=== PATIENT | female | born 1980 | race Caucasian/White ===

== ENCOUNTER 2019-09-10 15:46 | Emergency (ER) | payer MEDICAID, OTHER ==
[~2019-09-10] VITALS: Ht 180.3 cm; Wt 62.0 kg
[~2019-09-10 15:46] MED LIST: CYCL5TAB PO; DICL25TA PO; HYDR1TAB13 PO
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
[2019-09-10] MEDS ORDERED: PRAZ1CAP2 PO (17:16)
[2019-09-10] MEDS ORDERED: BREX2TAB PO (17:16)
[2019-09-10] MEDS ORDERED: GABA-827 PO (17:16)
[2019-09-10 17:19] LABS: BASOPHILS # (AUTO) 0.05 x10^3/uL (0-0.1); BASOPHILS % (AUTO) 1 % (0-1); EOSINOPHILS # (AUTO) 0.08 x10^3/uL (0-0.4); EOSINOPHILS % (AUTO) 2 % (1-7); LYMPHOCYTES # (AUTO) 1.82 x10^3/uL (1-3.4); LYMPHOCYTES % (AUTO) 34 % (22-44); MD NO; MEAN CORPUSCULAR HEMOGLOBIN 31.1 pg (27.0-34.8); MEAN CORPUSCULAR HGB CONC 32.7 g/dL (32.4-35.8); MEAN CORPUSCULAR VOLUME 95.1 fL (80-100); MEAN PLATELET VOLUME 8.4 fL (7.4-10.4); MONOCYTES # (AUTO) 0.44 x10^3/uL (0.2-0.8); MONOCYTES % (AUTO) 8 % (2-9); NEUTROPHILS # (AUTO) 2.89 x10^3/uL (1.8-6.8); NEUTROPHILS % (AUTO) 55 % (42-75); PLATELET COUNT 216 x10^3/uL (130-400); RED BLOOD COUNT 4.56 x10^6/uL (3.82-5.3); RED CELL DISTRIBUTION WIDTH 14.4 % (9.6-15.2)
[2019-09-10] MEDS ORDERED: FLUV100T2 PO (17:19)
[2019-09-10] MEDS ORDERED: CLON1TAB11 PO (17:19)
[2019-09-10] MEDS ORDERED: MEDR150V3 IM (17:19)
[2019-09-10 17:33] LABS: ALBUMIN 4.1 g/dL (3.4-5.0); ANION GAP 6 mmol/L (5-15); CALCIUM 8.9 mg/dL (8.5-10.1); CHLORIDE 110 mmol/L (98-107); CREATININE 0.93 mg/dL (0.55-1.02); SALICYLATE LEVEL 2.1 mg/dL (2.8-20.0)
[2019-09-10 17:35] LABS: MICROSCOPIC NOT IND
[2019-09-10 17:36] LABS: CULTURE INDICATED? NO
[2019-09-10 17:38] LABS: ALKALINE PHOSPHATASE 49 U/L (45-117); BILIRUBIN,TOTAL 0.5 mg/dL (0.2-1.0); TOTAL PROTEIN 7.4 g/dL (6.4-8.2)
[2019-09-10 17:41] LABS: ALANINE AMINOTRANSFERASE 15 U/L (12-78)
[2019-09-10 17:47] LABS: AMPHETAMINE SCREEN, URINE Negative (Negative); BARBITURATE SCREEN, URINE Negative (Negative); BENZODIAZEPINE SCREEN, URINE Negative (Negative); CANNABINOID SCREEN, URINE Negative (Negative); COCAINE SCREEN, URINE Negative (Negative); METHADONE SCREEN, URINE Negative (Negative); OPIATE SCREEN, URINE Negative (Negative)
--- NOTE | 2019-09-10 18:53 | NUR ---
LYING QUIETLY ON BED; BLANKET COVERING HEAD. SITTER AT DOORWAY.
--- NOTE | 2019-09-10 18:58 | NUR ---
PT REPORT TO TANMAY BARAJAS RN. PT CARE TRANSFERRED.
--- NOTE | 2019-09-10 19:39 | NUR ---
PT REPORT FROM JEFFRY DONATO. PT CARE TO BE ASSUMED.
--- NOTE | 2019-09-10 20:05 | NUR ---
JEFFRY DENSON FROM [facility] AT .
--- NOTE | 2019-09-10 20:09 | NUR ---
ALEXANDER RN: PT CHART AND PSYCH FORMS FAXED TO [facility], [facility], [place], AND DAT
--- NOTE | 2019-09-10 20:16 | NUR ---
JEAN DENSON, RN, PT WILL BE ADMITTED TO [facility].
--- NOTE | 2019-09-10 20:22 | NUR ---
LATE ENTRY. INFORMATION FROM [employer]. PT'S FRIEND: MARILUZ WHITE TEL: [phone]
[2019-09-10 20:46] VITALS: BP 92/54
--- NOTE | 2019-09-10 20:47 | NUR ---
CALLED FLOOR; RECEIVING RN NOT CURRENTLY AVAILABLE - SHE'LL CALL BACK.
--- NOTE | 2019-09-10 21:12 | NUR ---
INFORMED PT OF TYLENOL ORDER FOR HER LOYA. PT REFUSING TYLENOL. DEMANDING MAXALT "AND I WANT IT NOW!" PT AWARE OF PENDING ADMISSION TO [facility]. STATES SHE WANTS TO GO TO [facility]. INFORMED PT THAT THIS RN WAS TOLD [facility] DOESN'T ACCEPT HER INSURANCE. DEMANDING TO TALK TO NURSING ASSOCIATE PROGRAMMER ANALYST AND MD. PT SPEAKING IN ANGRY TONE. Addendum: 09/10/19 at 2114 by MIRIAM WILL NOTIFY ASSOCIATE PROGRAMMER ANALYST AND ERP.
[2019-09-10] MEDS ORDERED: RIZATRIPTAN 10MG TABLET PO PRN (21:30)
[2019-09-10] MEDS ORDERED: ACETAMINOPHEN 325 MG TABLET PO ONE (21:30)
--- NOTE | 2019-09-10 21:31 | NUR ---
NOTIFIED PT OF CHANGE IN MEDICATION AND THAT MAXALT NEEDS TO BE ORDERED FROM PHARMACY. PT ASKED ABOUT ADMISSION TO [facility]. INFORMED HER REGISTRATION IS REVERIFING HER INSURANCE. PT STATES "IF I CAN'T GO THERE, I WANT TO GO TO [facility], AND IF I NEED TO GET MY PLATEMAKER INVOLVED, I WILL. 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
--- NOTE | 2019-09-10 21:34 | NUR ---
JEFFRY BROWN FROM [facility] CALLED FOR PT REPORT. UPDATED KEVIN ON PT'S DEMANDS. WILL CALL UNIT BACK WITH DETERMINATION.
--- NOTE | 2019-09-10 21:43 | NUR ---
PT NOTIFIED SHE WILL BE ADMITTED TO [facility]. PT ANGRY. PT ASKED "WHAT IF I GET ACCEPTED TO [facility]?" INFORMED PT SHE WILL NEED TO DISCUSS THAT WITH UNIT STAFF. PT DEMANDING HER CLOTHES. INFORMED HER PER PROTOCOL, SI PATIENT CLOTHES ARE REMOVED - PT WAS NOTIFIED HOURS AGO THAT PERSONAL BELONGINGS WOULD BE REMOVED FROM HER PRESENCE AND SECURELY STORED. ASSURED PT THAT HER PERSONAL BELONGINGS WOULD GO TO THE UNIT WITH HER.
--- NOTE | 2019-09-10 21:51 | NUR ---
PT REPORT TO JEFFRY BROWN. MAXALT 10MG PO RECEIVED FROM PHARMACY AND WILL BE GIVEN TO PT SHORTLY.
== END 2019-09-10 22:04 ==
LOC: ED 18:09
DX: S16.1XXA Strain of muscle, fascia and tendon at neck level, initial encounter (principal); F33.2 Major depressive disorder, recurrent severe without psychotic features; R45.851 Suicidal ideations; F50.00 Anorexia nervosa, unspecified; V49.88XA Car occupant (driver) (passenger) injured in other specified transport accidents, initial encounter; Y93.89 Activity, other specified; Y92.89 Other specified places as the place of occurrence of the external cause; Y99.8 Other external cause status
CPT/HCPCS: 36415; 72050; 80053; 80307; 81003; 84703; 85025; 99285

== ENCOUNTER 2019-09-10 20:50 | Inpatient (IN) | payer MEDICAID ==
[~2019-09-10] VITALS: Ht 180.3 cm; Wt 65.1 kg
[~2019-09-10 20:50] MED LIST changes: +BREX2TAB PO; +CLON1TAB11 PO; +FLUV100T2 PO; +GABA-827 PO; +MEDR150V3 IM; +PRAZ1CAP2 PO
[2019-09-10] MEDS ORDERED: POLYETHYLENE GLYCOL 17 GM PACKET PO PRN (21:00)
[2019-09-10] MEDS ORDERED: LORazepam 0.5MG TABLET PO PRN (21:00)
[2019-09-10] MEDS ORDERED: ACETAMINOPHEN 325 MG TABLET PO PRN (21:00)
[2019-09-10] MEDS ORDERED: BISACODYL 10 MG SUPP PR PRN (21:00)
[2019-09-10] MEDS ORDERED: DOCUSATE 100 MG CAPSULE PO PRN (21:00)
[2019-09-10] MEDS ORDERED: ONDANSETRON ODT 4 MG PO PRN (21:00)
[2019-09-10 22:00] VITALS: BP 113/75
[2019-09-11 07:12] VITALS: BP 103/68
[2019-09-11 07:28] LABS: CHOL/HDL RATIO 2.6; FREE T4 (FREE THYROXINE) 0.96 ng/dL (0.76-1.46); LDL/HDL RATIO 1.3 (0.5-3.0)
[2019-09-11] MEDS ORDERED: CYCLOBENZAPRINE 10 MG TABLET PO PRN (07:30)
[2019-09-11] MEDS ORDERED: NICOTINE 14MG/24 HR PATCH.TD24 TD SCH (07:30)
[2019-09-11] MEDS ORDERED: GABAPENTIN 400 MG CAPSULE PO SCH (09:00)
== END 2019-09-11 13:36 | DRG 885 ==
LOC: 3E 22:33
PROVIDERS: ADMIT Psychiatry & Neurology Psychosomatic Medicine; ATTEND Psychiatry & Neurology Psychosomatic Medicine
DX: F31.30 Bipolar disorder, current episode depressed, mild or moderate severity, unspecified (principal); F50.00 Anorexia nervosa, unspecified; R45.851 Suicidal ideations; F17.210 Nicotine dependence, cigarettes, uncomplicated; G89.21 Chronic pain due to trauma; Z80.6 Family history of leukemia; Z86.59 Personal history of other mental and behavioral disorders; Z79.899 Other long term (current) drug therapy
CPT/HCPCS: 36415; 71045; 80061; 82140; 82607; 84439; 84443; 93005

== ENCOUNTER 2020-01-11 08:03 | Emergency (ER) | payer MEDICAID ==
[~2020-01-11] VITALS: Ht 180.3 cm; Wt 70.0 kg
--- NOTE | 2020-01-11 09:11 | NUR ---
TO NAOMY FROM [facility]
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
[2020-01-11] MEDS ORDERED: PROCHLORPERAZINE 5 MG/ML, 2ML IVPush ONE (09:30)
[2020-01-11] MEDS ORDERED: SODIUM CHLORIDE 0.9% 1,000ML IVBOLUS ONE (09:30)
[2020-01-11] MEDS ORDERED: DIPHENHYDRAMINE 50 MG/ML, 1ML IVPush ONE (09:30)
[2020-01-11] MEDS ORDERED: SODIUM CHLORIDE FLUSH 10ML SYR IVF ONE (09:30)
[2020-01-11 09:48] LABS: BASOPHILS # (AUTO) 0.04 x10^3/uL (0-0.1); BASOPHILS % (AUTO) 1 % (0-1); EOSINOPHILS # (AUTO) 0.03 x10^3/uL (0-0.4); EOSINOPHILS % (AUTO) 1 % (1-7); LYMPHOCYTES # (AUTO) 1.56 x10^3/uL (1-3.4); LYMPHOCYTES % (AUTO) 32 % (22-44); MD NO; MEAN CORPUSCULAR HGB CONC 33.5 g/dL (32.4-35.8); MEAN CORPUSCULAR VOLUME 95.6 fL (80-100); MEAN PLATELET VOLUME 8.1 fL (7.4-10.4); MONOCYTES # (AUTO) 0.59 x10^3/uL (0.2-0.8); MONOCYTES % (AUTO) 12 % (2-9); NEUTROPHILS # (AUTO) 2.61 x10^3/uL (1.8-6.8); NEUTROPHILS % (AUTO) 54 % (42-75); PLATELET COUNT 225 x10^3/uL (130-400); RED BLOOD COUNT 4.65 x10^6/uL (3.82-5.3); RED CELL DISTRIBUTION WIDTH 13.4 % (9.6-15.2)
[2020-01-11 09:52] LABS: ALBUMIN 3.8 g/dL (3.4-5.0); ANION GAP 8 mmol/L (5-15); CALCIUM 8.7 mg/dL (8.5-10.1); CHLORIDE 110 mmol/L (98-107); CREATININE 1.08 mg/dL (0.55-1.02)
[2020-01-11] MEDS ORDERED: PROCHLORPERAZINE 5 MG/ML, 2ML ONE (10:08)
[2020-01-11] MEDS ORDERED: DIPHENHYDRAMINE 50 MG/ML, 1ML ONE (10:08)
[2020-01-11] MEDS ORDERED: KETOROLAC 30 MG/1 ML ONE (10:27)
[2020-01-11] MEDS ORDERED: KETOROLAC 30 MG/1 ML IVPush ONE (10:30)
[2020-01-11 11:39] VITALS: BP 127/91
--- NOTE | 2020-01-11 11:40 | NUR ---
pt reports headache resolved. pt a&o, resps even and unlabored. piv dc'd with tip intact. pt given dc instructions and script, educated regarding dc rx for fioricet and maxalt. pt ambulatory with steady gait to dc, nadn at dc. pt educated not to drive self d/t meds given, pt verbalizes understanding.
== END 2020-01-11 11:40 | disposition home or self-care (01) ==
LOC: ED 09:30
DX: R51 Headache (principal); R11.0 Nausea; F17.200 Nicotine dependence, unspecified, uncomplicated
CPT/HCPCS: 36415; 80048; 82040; 85025; 96374; 96375; 99284; J0780; J1200; J1885; J7030